=== PATIENT | male | born 1955 | race Caucasian/White ===

== ENCOUNTER → 2016-09-07 | Outpatient (CLI) | payer BC ==
--- NOTE | 2016-09-07 08:35 | PCM.PRNOTE ---
- Free Text/Narrative Note: Exercise MIBI Indication CP Sestamibi Tc99 25 MCi was given at the peak HR Patient was brought to the stress test lab in postabsorptive state verbal and paper consent was obtained from patient Vital signs at resting state blood pressure of 134/90 with a heart rate of 69 EKG shows sinus rhythm no ST changes no Q waves Maximal heart rate of 147 and target heart rate is 134 Patient reached the target heart rate, completed stage III Kehinde protocol Peak blood pressure is 172/84 Total exercise time of 8.[address] changes with a peak heart rate no arrhythmia METS 10.1 patient complained slight chest tightness and spontaneously resolved Impression Normal hemodynamics, normal chronotropic, excellent exercise capacity, negative for ischemia on EKG Plan Nuclear portion pending
--- NOTE | 2016-09-07 11:39 | NM ---
EXAMINATION: Nuclear medicine myocardial perfusion study with exercise stress test. HISTORY: Chest pain. PROCEDURE: Patient exercised according to Kehinde protocol for 8 minutes and 14 seconds and achieved maximal hear t rate of 147 beats per minute. Adequate exercise. Following intravenous administration of 27.6 mCi of technetium 99m sestamibi, stress SPECT images i ncluding gating imaging was performed. FINDINGS: Stress myocardial SPECT images demonstrates mildly heterogeneous uptake within the left ventricular myocardium. There is a tiny area of mildly decreased perfusion within the anterior wall at the midpo rtion. There is also a small area of mildly decreased perfusion along the inferior wall at the base. Review of gated images demonstrates normal wall motion, contractility and wall thickening. The left ventricular ejection fraction is 60 %. The left ventricular chamber size is normal. IMPRESSION: 1. Mildly heterogeneous uptake within the left ventricular myocardium, correlate with rest imaging. 2. Normal ventricular chamber size and function with ejection fraction of 60 %.
== END ==
LOC: MW.NM 06:43
PROVIDERS: ATTEND Internal Medicine
DX: R07.89 Other chest pain (principal)
CPT/HCPCS: 78451; 78451-26; 93017; A9500

== ENCOUNTER 2021-07-08 10:15 | Emergency (ER) | payer BC, MEDICARE ==
[2021-07-08 11:10] LABS: CORONAVIRUS COVID-19 NAA NEGATIVE (NEGATIVE); INFLUENZA A NAA NEGATIVE (NEGATIVE); INFLUENZA B NAA NEGATIVE (NEGATIVE)
[2021-07-08] MEDS ORDERED: Albuterol 8 GM Inhaler INH STA (11:13)
--- NOTE | 2021-07-08 11:14 | EDM.PDOC ---
ED HPI GENERAL MEDICAL PROBLEM - General Chief Complaint: Respiratory Problem Stated Complaint: POSSIBLE BRONCHITIS Time Seen by Provider: 07/08/21 10:21 - History of Present Illness INITIAL COMMENTS - FREE TEXT/NARRATIVE: History of present illness: [] Patient has persistent cough . Nothing makes it better or worse. It started about 10 days ago. 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 He has been able to jump in and out but now has lost his voice. He claims he has no significant lung or heart history but he has had some episodes of upper respiratory infection and used a bronchodilator in the remote past Patient was seen [facility] for COVID-19. This patient was seen and evaluated during the 2019 SARS-CoV-2 novel coronavirus pandemic period. Community viral transmission is ongoing at time of this encounter and the emergency department is operating under pandemic response procedures. Review of systems: As per history of present illness and below otherwise all systems reviewed and negative. Past medical history: As per history of present illness and as reviewed below otherwise noncontributory. Surgical history: As per history of present illness and as reviewed below otherwise noncontributory. Social history: No reported history of drug or alcohol abuse. Family history: As per history of present illness and as reviewed below otherwise noncontribut ory. Physical exam: Constitutional - well developed, well-nourished and in no acute distress HEENT - normocephalic, no evidence of trauma - external nose and mouth normal - no mass in neck and no JVD - mucosae moist EYES - full EOM, PERRL, no icterus - no evidence of inflammation, injection, or drainage Respiratory - no respiratory distress, equal bilateral expansion, lungs scattered wheezes. Cardiovascular - Regular Rhythm with S1 and S2 appreciated and no murmur, gallop or rub. GI - abdomen soft without distension or organomegaly - normal bowel sounds - no guard or rebound Musculoskeletal no gross deformity of long bones or joints - no tenderness, swelling or edema Neurologic - Alert and oriented times four - CN II-XII grossly intact - motor sensory and coordination symmetrically normal Psychiatric - appropriate mood and affect with normal thought content Hematologic - No petechiae or purpura - mucosa appropriate color and sclera not pale - normal nail bed color and refill Integument - no rash or evidence of trauma - normal turgor Diagnostics: [] Therapeutics: [] Impression: [] Plan: [] Definitive disposition and diagnosis as appropriate pending reevaluation and review of above. - Related Data Allergies Allergy/AdvReac Type Severity Reaction Status Date / Time morphine AdvReac Nausea and Verified 07/08/21 10:19 Vomiting Home Meds: Home Meds Losartan [Cozaar] 100 mg PO DAILY 10/15/15 [History] metFORMIN [Glucophage] 500 mg PO BID 10/15/15 [History] Empagliflozin [Jardiance] 1 tab PO BEDTIME 07/04/18 [History] Levothyroxine 125 mcg PO ACBREAKFAST 07/08/21 [History] Semaglutide [Ozempic] 1 mg SQ WEEKLY 07/08/21 [History] hydroCHLOROthiazide [Hydrochlorothiazide] 12.5 mg PO BID 07/08/21 [History] Past Medical History HEENT History: Reports: Sinusitis Cardiovascular History: Reports: Hypertension Musculoskeletal History: Reports: Fracture Other Musculoskeletal History: Fracture to femur & Collar bone Endocrine/Metabolic History: Reports: Diabetes, Type II - Infectious Disease History Infectious Disease History: Reports: Chicken Pox, Measles - Past Surgical History GI Surgical History: Reports: Appendectomy, Cholecystectomy Other Musculoskeletal Surgeries/Procedures:: back surgery ; surgery to femur , knee , & hip. Social & Family History - Family History Family Medical History: No Pertinent Family History - Caffeine Use Caffeine Use: Reports: Coffee - Recreational Drug Use Recreational Drug Use: No ED ROS GENERAL - Review of Systems Review Of Systems: Comprehensive ROS is negative, except as noted in HPI. ED EXAM, GENERAL - Physical Exam Exam: See Below Free Text/Narrative:: My physical exam is in the HPI Course - Vital Signs Last Recorded V/S: Last Vital Signs Temp 35.6 C L 07/08/21 10:21 Pulse 70 07/08/21 10:56 Resp 16 07/08/21 10:21 BP 118/70 07/08/21 10:56 Pulse Ox 95 07/08/21 10:56 - Orders/Labs/Meds Orders: Active Orders 24 hr Category Date Time Status RT Post Treatment Assessment [RC] Click to Edit Care 07/08/21 11:13 Active RT Pre-Treatment Assessment [RC] Click to Edit Care 07/08/21 11:13 Active Chest 1V Frontal [CR] Stat Exams 07/08/21 10:53 Taken Labs: Laboratory Tests 07/08/21 Range/Units 10:30 Influenza Type A RNA NEGATIVE (NEGATIVE) Influenza Type B RNA NEGATIVE (NEGATIVE) SARS-CoV-2 RNA (ERIN) NEGATIVE (NEGATIVE) Meds: Medications Discontinued Medications Generic Name Dose Route Start Last Admin Trade Name Kiel PRN Reason Stop Dose Admin Albuterol 8 gm 07/08/21 11:13 07/08/21 11:29 Albuterol 8 Gm Inhaler INH 07/08/21 11:14 8 gm ONETIME STA Administration - Re-Assessments/Exams Free Text/Narrative Re-Assessment/Exam: 07/08/21 12:04 Patient is coughing less. Lungs are more clear on auscultation. Covid and flu were negative. X-ray does not show any discrete infiltrate. Departure - Departure Time of Disposition: 12:04 Disposition: Home, Self-Care 01 Condition: Good Clinical Impression: Acute bronchitis, Laryngitis - Discharge Information Instructions: Laryngitis, [id number], Acute Bronchitis, Adult Referrals: PCP,None [Primary Care Provider] - Forms: ED Department Discharge Additional Instructions: Your COVID-19 and influenza test were negative. Use inhaler every 4-6 hours as needed for cough Drink lots of fluids For scratchy throat you can use Chloraseptic or other topical anesthetic sprays or lozenges. Your prescription went to the [employer] vending machine [facility] [address] [place] [address] [place] [address] The following information is given to patients seen in the emergency department who are being discharged to home. This information is to outline your options for follow-up care. We provide all patients seen in our emergency department with a follow-up referral. The need for follow-up, as well as the timing and circumstances, are variable depending upon the specifics of your emergency department visit. If you don't have a primary care physician on staff, we will provide you with a referral. We always advise you to contact your personal physician following an e mergency department visit to inform them of the circumstance of the visit and for follow-up with them and/or the need for any referrals to a consulting specialist. The emergency department will also refer you to a specialist when appropriate. This referral assures that you have the opportunity for follow-up care with a specialist. All of these measure are taken in an effort to provide you with op timal care, which includes your follow-up. Under all circumstances we always encourage you to contact your private physician who remains a resource for coordinating your care. When calling for follow-up care, please make the office aware that this follow-up is from your recent emergency room visit. If for any reason you are refused follow-up, please contact the [facility] Emergency Department at and asked to speak to the emergency department charge nurse. Sepsis Event Note (ED) - Evaluation Sepsis Screening Result: No Definite Risk - Focused Exam Vital Signs: Vital Signs Temp Pulse Resp BP Pulse Ox 07/08/21 10:56 70 118/70 95 07/08/21 10:21 35.6 C L 81 16 132/72 97 - My Orders Last 24 Hours: My Active Orders 07/08/21 10:53 Chest 1V Frontal [CR] Stat 07/08/21 11:13 RT Post Treatment Assessment [RC] Click to Edit RT Pre-Treatment Assessment [RC] Click to Edit - Assessment/Plan Last 24 Hours: My Active Orders 07/08/21 10:53 Chest 1V Frontal [CR] Stat 07/08/21 11:13 RT Post Treatment Assessment [RC] Click to Edit RT Pre-Treatment Assessment [RC] Click to Edit
--- NOTE | 2021-07-08 12:12 | CR ---
INDICATION: Cough. COMPARISON: Two-view chest August 05, 2019. TECHNIQUE: Single portable AP chest. FINDINGS: Low lung volumes secondary to poor inspiration. Normal size cardiac silhouette. Clear lung bowie with no evidence of acute pneumonic infiltrates or CHF. No pneumothorax or pleural effusion. Old fracture left clavicle. IMPRESSION: No acute pathology. Dictated by Issac Blanca MD @ 07/08/2021 12:11:18 PM (Electronically Signed)
[2021-07-08 13:49] VITALS: BP 127/71; PULSE 70
== END 2021-07-08 12:15 | disposition home or self-care (01) ==
LOC: MW.ED 10:15
DX: J20.9 Acute bronchitis, unspecified (principal); J04.0 Acute laryngitis; I10 Essential (primary) hypertension; E11.9 Type 2 diabetes mellitus without complications; Z79.899 Other long term (current) drug therapy; Z72.0 Tobacco use; Z88.5 Allergy status to narcotic agent; Z20.822 Contact with and (suspected) exposure to COVID-19
CPT/HCPCS: 0240U; 71045; 99284; A9270